=== PATIENT | female | born 1995 | race Caucasian/White ===

== ENCOUNTER 2022-02-25 13:07 | Emergency (ER) | payer OTHER, SELFPAY ==
[2022-02-25 13:17] VITALS: BP 151/98; PULSE 133; RESP 20; TEMP 36.7; O2SAT 98; BMI 20.5
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
--- NOTE | 2022-02-25 13:33 | DI.CT.S_ITS ---
PROCEDURE: CT CERVICAL SPINE WO CON INDICATIONS: dystonia TECHNIQUE: Noncontrast 3 mm thick sections acquired from the skull base to the T4 level. Sagittal and coronal reformats were then constructed. For radiation dose reduction, the following was used: automated exposure control, adjustment of mA and/or kV according to patient size. COMPARISON: None. FINDINGS: Image quality: Excellent. Bones: No fractures or dislocations. Visualized superior ribs are intact. Soft tissues: Prevertebral soft tissues are normal in thickness. No paravertebral hematomas. No apical pneumothoraces. IMPRESSION: Unremarkable CT cervical spine Approved by: Owen Vazquez M.D. on 02/25/2022 at 13:52
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
[2022-02-25] MEDS: ONDANSETRON 4 MG/2 ML INJ IV (13:44)
[2022-02-25] MEDS: MORPHINE 4 MG/ML INJ IV (13:44)
[2022-02-25] MEDS: SODIUM CHLORIDE 0.9% 1,000 ML 1000 ML IV (13:44)
[2022-02-25 13:47] LABS: Add Manual Diff / Slide Review NO; Basophils Absolute Auto 100 /uL (0-100); Basophils Percent Auto 0.9 % (0-2); Eosinophils Absolute Auto 100 /uL (0-450); Eosinophils Percent Auto 1.1 % (2-4); Hematocrit 39.6 % (36-46); Hemoglobin 13.3 g/dL (12.0-16.0); Lymphocytes Absolute Auto 2400 /uL (1100-4500); Lymphocytes Percent Auto 40.5 % (25-40); Mean Corpuscular HGB Conc 33.6 % (30-36); Mean Corpuscular Hemoglobin 31.8 PG (26-34); Mean Corpuscular Volume 94.6 fL (80-100); Monocytes Absolute Auto 600 /uL (0-900); Monocytes Percent Auto 9.8 % (3-14); Neutrophils Absolute Auto 2800 /uL (1500-7000); Neutrophils Percent Auto 47.7 % (50-75); Platelet Count 280 X10^3/uL (150-400); Red Blood Cell Count 4.18 X10^6/uL (4.0-5.2); Red Cell Distribution Width 12.3 % (11.6-14.8); White Blood Cell Count 5.9 X10^3/uL (4.5-11.0)
[2022-02-25 14:01] LABS: Alanine Aminotransferase 13 IU/L (<35); Albumin 4.9 g/dL (3.5-5.0); Albumin Globulin Ratio 1.4 (1.0-2.8); Alkaline Phosphatase 59 U/L (38-126); Aspartate Aminotransferase 21 IU/L (14-36); BUN Creatinine Ratio 14.5 (6-22); Bilirubin Total 1.3 mg/dL (0.2-1.3); Blood Urea Nitrogen 8 mg/dL (7-17); Calcium 9.8 mg/dL (8.4-10.2); Carbon Dioxide 25 mmol/L (22-32); Chloride 102 mmol/L (98-107); Estimated Glomerular Filt Rate > 60 mL/min (>60); Globulin 3.6 g/dL (1.7-4.1); Glucose 103 mg/dL (70-100); HEMOLYSIS < 15 (0-50); Lipase 121 U/L (23-300); Potassium 3.7 mmol/L (3.4-5.1); Sodium 139 mmol/L (137-145); Total Protein 8.5 g/dL (6.3-8.2)
[2022-02-25 14:09] LABS: Pregnancy Test Serum,Qual Negative (Negative)
[2022-02-25] MEDS: diazePAM 10 MG/2 ML SYRINGE 5 MG IV (15:15)
[2022-02-25 16:49] VITALS: BP 115/62; PULSE 64; O2SAT 100
== END 2022-02-25 16:49 | disposition home or self-care (01) ==
PROVIDERS: Emergency Provider Emergency Medicine
DX: M54.12 Radiculopathy, cervical region (principal); M62.838 Other muscle spasm; G24.9 Dystonia, unspecified; V89.2XXA Person injured in unspecified motor-vehicle accident, traffic, initial encounter
CPT/HCPCS: 36415; 70450; 71260; 72125; 74177; 80053; 81003; 81025; 83690; 84703; 85025; 96361; 96374; 96375; 99284; 99285; J2270; J2405; J3360

== ENCOUNTER → 2022-05-05 13:54 | Outpatient (CLI) | payer MEDICARE, MEDICAID, SELFPAY ==
--- NOTE | 2022-05-05 | DI.US.S_ITS ---
PROCEDURE: US RENAL COMPLETE INDICATIONS: Other specified disorders of kidney and ureter TECHNIQUE: Real-time scanning was performed of the kidneys and bladder, with image documentation. COMPARISON: None. FINDINGS: Kidneys: Kidneys are normal in size. Right kidney measures 11.4 cm long; left kidney measures 10.6 cm long. Renal cortical echotexture is normal. No hydronephrosis or nephrolithiasis. There is a hyperechoic mass lesion involving the left kidney of with arterial and venous blood flow noted. This measures 1.3 x 1.2 x 1.2 centimeters. Given the imaging findings are recommend renal MRI of for further characterization.. Bladder: Bladder is decompressed at the time of imaging. Bilateral ureteral jets are noted. Miscellaneous: No free pelvic fluid. IMPRESSION: 1.3 x 1.2 x 1.2 centimeter hyperechoic solid mass lesion involving the lower pole of the left kidney. This does show arterial and venous blood flow. Given the imaging findings I would recommend an MRI of the kidneys using the renal mass protocol. Dictated by: Balwinder Betancur M.D. on 05/05/2022 at 16:37 Approved by: Balwinder Betancur M.D. on 05/05/2022 at 16:40
== END ==
PROVIDERS: PCP Registered Nurse; Referring Provider Registered Nurse; Visit Provider Registered Nurse
DX: N28.89 Other specified disorders of kidney and ureter (principal)
CPT/HCPCS: 76770

== ENCOUNTER → 2022-05-13 12:08 | Outpatient (CLI) | payer MEDICARE, MEDICAID, SELFPAY ==
--- NOTE | 2022-05-13 | DI.MRI.S_ITS ---
PROCEDURE: MR ABDOMEN WO/W CON INDICATIONS: Other specified disorders of kidney and ureter TECHNIQUE: Coronal HASTE through abdomen and pelvis; axial 2D FLASH in- and [id number] (with and without fat saturation), and breath-hold T2 FSE from the hepatic dome to the bottom of the kidneys. Coronal HASTE MR urogram of kidneys and bladder. Dynamic coronal VIBE during IV gadolinium administration; postgadolinium axial VIBE or 2D FLASH with fat saturation from the hepatic dome through the kidneys. COMPARISON: [facility], US, US RENAL COMPLETE, 05/05/2022, 14:48. [facility], CT, CT CHEST ABD PEL W CON, 02/25/2022, 13:56. FINDINGS: Image quality: Excellent. Genitourinary system: Along the anterior medial upper pole cortex of the left kidney, a 1.5 cm partially exophytic mass is present demonstrating mild homogeneous T1 hyperintensity and slightly heterogeneous mild T2 hyperintensity. Precontrast image demonstrates mild homogeneous T1 hyperintensity. No arterial or delayed phase enhancement postcontrast. A 1.1 cm rounded corticomedullary fatty mass in the lower pole of the left kidney also demonstrates no evidence of enhancement. Renal morphology is otherwise normal. No hydronephrosis. Other solid organs: The liver, spleen, adrenal glands, gallbladder, biliary tree, and pancreas are otherwise normal. Nodes and vessels: No retroperitoneal or visible mesenteric adenopathy. Normal caliber aorta and inferior vena cava. Bowel and peritoneum: Normal stomach and visible bowel loops. No free intraperitoneal fluid. Lung bases: No basal effusions. Normal heart size. Bones and soft tissues: Normal marrow signal. Normal subcutaneous tissues. IMPRESSION: 1. 1.5 cm nonenhancing proteinaceous or hemorrhagic cyst arising anteriorly from the upper pole left kidney is benign. 2. 1.1 cm left lower pole angiomyolipoma. Dictated by: Leilani Thurston M.D. on 05/13/2022 at 15:19 Approved by: Leilani Thurston M.D. on 05/13/2022 at 15:38
== END ==
PROVIDERS: PCP Registered Nurse; Referring Provider Registered Nurse; Visit Provider Registered Nurse
DX: D17.71 Benign lipomatous neoplasm of kidney (principal); N28.1 Cyst of kidney, acquired; N28.89 Other specified disorders of kidney and ureter
CPT/HCPCS: 74183